=== PATIENT | female | born 1955 | race Two or more races ===

== ENCOUNTER 2019-11-06 11:27 | Outpatient (CLI) | payer OTHER ==
[2019-11-07] MEDS ORDERED: IBUPROFEN600 M1 ORAL (15:15)
[2019-11-07] MEDS ORDERED: TIZANIDINE HCL2 M2 PO (15:15)
[2019-11-07] MEDS ORDERED: ATORVASTATIN CA40 MG ORAL (15:15)
--- NOTE | 2019-11-11 22:45 | Consultation ---
DATE OF CONSULTATION: 11/06/2019 CONSULTING PHYSICIAN: Pete Reyna M.D. CHIEF COMPLAINT: Jaundice. HISTORY OF PRESENT ILLNESS: This 64-year-old female was referred to us for evaluation of EUS for jaundice. PAST MEDICAL HISTORY: 1. Jaundice. 2. Hyperlipidemia. 3. Anemia. 4. Gallstones. 5. Dilated CBD of 10 mm. PAST SURGICAL HISTORY: None. MEDICATIONS: Please see medication reconciliation list. FAMILY HISTORY: No family history of GI malignancies. SOCIAL HISTORY: The patient denies any tobacco, alcohol or drug abuse. ALLERGIES: No known allergies. REVIEW OF SYSTEMS: A 10-point review of systems was performed and pertinent positives in HPI. PHYSICAL EXAMINATION: GENERAL: A well-developed female, in no acute distress HEENT: Normocephalic and atraumatic. Sclerae anicteric. NECK: Supple. No evidence of obvious lymphadenopathy. CARDIOVASCULAR: Rhythm rate and rhythm. Plus S1, S2. LUNGS: Decreased breath sounds bilaterally based on the supine exam. ABDOMEN: Soft, nontender. No rebound. No guarding. No peritoneal sign. EXTREMITIES: No cyanosis. No clubbing. No edema. LABORATORY DATA: Bilirubin is 4.9 and was 9.9 before. AST of 133, ALT of 138, alkaline phosphatase of 58. ASSESSMENT AND PLAN: This is a 64-year-old female who apparently had jaundice. Imaging studies in a different facility did not show any obvious stone. There was a soft tissue mass in the distal common bile duct. ERCP by other physicians failed. MRIs did not show any liver lesion or any other lymphadenopathy in the perihepatic area. The patient was referred for EUS for evaluation of the common bile duct stone or mass. We are going to try to get an authorization and schedule the patient and the authorization is obtained. Pete Reyna M.D. DR: Kvng JOB#: [id number] CC:
== END 2019-11-06 13:27 | disposition home or self-care (01) ==
LOC: PAN 11:27
DX: R10.9 Unspecified abdominal pain (principal)
CPT/HCPCS: G0463

== ENCOUNTER 2020-03-19 13:46 | Outpatient (CLI) | payer OTHER ==
[~2020-03-19 13:46] MED LIST: ATORVASTATIN CA40 MG ORAL; IBUPROFEN600 M1 ORAL; OMEPRAZOLE20 M2 ORAL; TIZANIDINE HCL2 M2 PO
[2020-03-19 13:58] VITALS: BP 129/88
--- NOTE | 2020-03-19 14:17 | General Progress Note ---
Subjective ROS Limited/Unobtainable: No Allergies: Coded Allergies: No Known Allergies (Unverified , 11/07/19) Objective Last 24 Hour Vital Signs Date Time Temp Pulse Resp B/P (MAP) Pulse Ox O2 Delivery O2 Flow Rate FiO2 03/19/20 13:58 98.0 92 16 129/88 97 General Appearance: no apparent distress EENT: normal ENT inspection Neck: supple Cardiovascular: normal rate Respiratory/Chest: decreased breath sounds Abdomen: normal bowel sounds, non tender, soft Extremities: non-tender Assessment/Plan Assessment/Plan: gallstones s/p EUS recent jaundice recommend cholecystectomy Pete Reyna MD Mar 19, 2020 14:17
== END 2020-03-19 15:46 | disposition home or self-care (01) ==
LOC: PAN 13:46
DX: K80.80 Other cholelithiasis without obstruction (principal); R17 Unspecified jaundice
CPT/HCPCS: 99212